=== PATIENT | male | born 1975 | race Caucasian/White ===

== ENCOUNTER 2018-05-01 02:28 | Emergency (ER) | payer OTHER ==
[~2018-05-01] VITALS: Ht 170.2 cm; Wt 90.3 kg
[2018-05-01 02:33] VITALS: Ht 170.2 cm; Wt 90.3 kg
[2018-05-01 04:25] VITALS: BP 131/63
== END 2018-05-01 04:25 | disposition home or self-care (01) ==
LOC: ED 02:28
DX: L03.114 Cellulitis of left upper limb (principal); R03.0 Elevated blood-pressure reading, without diagnosis of hypertension; Z79.890 Hormone replacement therapy
CPT/HCPCS: 90715

== ENCOUNTER 2018-09-06 23:07 | Emergency (ER) | payer OTHER | END 2018-09-07 00:35 | disposition home or self-care (01) | LOC: ED 23:07 ==

== ENCOUNTER 2019-02-06 09:23 | Emergency (ER) | payer OTHER ==
[~2019-02-06] VITALS: Ht 170.2 cm; Wt 88.9 kg
[2019-02-06 09:27] VITALS: Ht 170.2 cm; Wt 88.9 kg
[2019-02-06 11:54] VITALS: BP 132/85
== END 2019-02-06 11:54 | disposition home or self-care (01) ==
LOC: ED 09:23
DX: L03.114 Cellulitis of left upper limb (principal); Z98.890 Other specified postprocedural states

== ENCOUNTER 2019-02-07 07:14 | Emergency (ER) | payer OTHER ==
[~2019-02-07] VITALS: Ht 167.6 cm; Wt 87.5 kg
[2019-02-07 07:21] VITALS: Ht 167.6 cm; Wt 87.5 kg
[2019-02-07 08:08] LABS: BASOPHIL % 0.5 % (0-2); PLATELET COUNT 246 x10^3mcL (130-400); RED CELL DISTRIBUTION WIDTH 12.7 % (11.5-14.5)
[2019-02-07 08:14] LABS: CALCIUM 8.6 mg/dL (8.5-10.1); CARBON DIOXIDE 34.7 mmol/L (21-32); CHLORIDE SERUM 104 mmol/L (98-107); GFR1 > 60 mL/min; GLUCOSE SERUM 114 mg/dL (74-106); POTASSIUM SERUM 3.2 mmol/L (3.5-5.1); SODIUM SERUM 144 mmol/L (136-145)
[2019-02-07 08:24] LABS: ALBUMIN 3.6 g/dL (3.4-5.0); ALKALINE PHOSPHATASE 60 U/L (46-116); ALT/SGPT 23 U/L (16-63); AST/SGOT 11 U/L (15-37); BILIRUBIN TOTAL 0.37 mg/dL (0.20-1.00); C REACTIVE PROTEIN 4.1 mg/dL (<=0.9); TOTAL PROTEIN, SERUM 7.7 g/dL (6.4-8.2)
[2019-02-07 08:28] LABS: T3 TOTAL 1.41 ng/mL
[2019-02-07 08:29] LABS: FREE T4 1.11 ng/dL (0.76-1.46); FREE THYROXINE INDEX 3.4 ug/dL (1.4-4.5); T4(THYROXINE) 9.9 ug/dL (4.7-13.3)
[2019-02-07 08:30] LABS: CK-MB 1.2 ng/mL (0-3.6)
[2019-02-07 09:05] VITALS: BP 145/85
[2019-02-07 09:11] LABS: ERYTHROCYTE SED RATE 30 mm/hr (0-15)
[2019-02-07 11:02] LABS: UA SPECIFIC GRAVITY >=1.030 (1.005-1.035); microscopic required? YES; urine erythrocyte NEGATIVE (NEGATIVE)
== END 2019-02-07 09:05 | disposition home or self-care (01) ==
LOC: ED 07:14
PROVIDERS: Specialist
DX: L03.114 Cellulitis of left upper limb (principal); E87.6 Hypokalemia
CPT/HCPCS: 84439; J2543; J7030; Q0092

== ENCOUNTER 2019-02-08 22:14 | Inpatient (IN) | payer OTHER ==
[~2019-02-08] VITALS: Ht 170.2 cm; Wt 84.9 kg
[2019-02-08 22:28] VITALS: Ht 170.2 cm; Wt 84.9 kg
--- NOTE | 2019-02-08 22:50 | NUR ---
PT. PRESENTS TO ER C/O SP SPIDER BITE 5 DAYS AGO ON HIS LEFT UPPER EXTREMITY, REDNES NOTED, HOT TO TOUCH, PURULENT DRAINAGE NOTED, NO ODOR, PT. STATES HE CAME THIS PAST TUESDAY WAS GIVEN IV ANTIBIOTICS + SCRIPT FOR MEDICATON TO TAKE AT HOME, PT. WAS ASKED TO BE ADMITTED TO THE HOSPITAL ON TUESDAY, PT. STATES HE REFUSED, PT. CURRENTLY LAYING IN BED, AAOX4, NO ACUTE DISTRESS NOTED, 7/10 PAIN, THROBBING, INTERMITTENT, AT BEDSIDE MSE, WILL MONITOR,.
--- NOTE | 2019-02-08 23:06 | NUR ---
LAB AT BEDSIDE
--- NOTE | 2019-02-08 23:06 | NUR ---
X RAY AT BEDSIDE
[2019-02-08 23:12] LABS: BASOPHIL % 0.8 % (0-2); PLATELET COUNT 239 x10^3mcL (130-400); RED CELL DISTRIBUTION WIDTH 12.7 % (11.5-14.5)
[2019-02-08 23:35] LABS: CALCIUM 8.3 mg/dL (8.5-10.1); CARBON DIOXIDE 30.5 mmol/L (21-32); CHLORIDE SERUM 105 mmol/L (98-107); GFR1 > 60 mL/min; GLUCOSE SERUM 98 mg/dL (74-106); POTASSIUM SERUM 3.4 mmol/L (3.5-5.1); SODIUM SERUM 144 mmol/L (136-145)
--- NOTE | 2019-02-08 23:37 | NUR ---
MEDICATED PT. PER ER ORDER, PT. TOELRATED WELL, SEE EMAR
[2019-02-08 23:41] LABS: ALKALINE PHOSPHATASE 55 U/L (46-116); ALT/SGPT 21 U/L (16-63); AST/SGOT 10 U/L (15-37); BILIRUBIN TOTAL 0.39 mg/dL (0.20-1.00); TOTAL PROTEIN, SERUM 6.9 g/dL (6.4-8.2)
[2019-02-08 23:42] LABS: ALBUMIN 3.2 g/dL (3.4-5.0)
[2019-02-09 00:51] LABS: MAGNESIUM 2.1 mg/dL (1.8-2.4)
[2019-02-09 00:56] LABS: CHOLESTEROL/HDL RATIO 3.8
--- NOTE | 2019-02-09 01:17 | NUR ---
REPORT GIVEN TO SANDY
[2019-02-09 02:02] VITALS: BP 113/72
--- NOTE | 2019-02-09 02:11 | NUR ---
RECEIVED FROM ER, AMBULATORY. AWAKE AND ALERT, ORIENTED TO NAME, PLACE, TIME AND SITUATION. BREATHING EVEN AND UNLABORED ON ROOM AIR. LUNG SOUNDS CLEAR. SALINE LOCK TO RIGHT AC. LEFT ELBOW WITH DRESSING, REMOVED NOTED OPEN WOUND 2 X 1.5CM DRAINING MINIMAL YELLOW DRAIN. STATED HAVING 6/10 INTERMITTENT PAIN TO SITE. ORIENTED TO ROOM ENVIRONMENT, INSTRUCTED ON USE OF CALL LIGHT TO CALL FOR ASSISTANCE, PLACED WITHIN EASY REACH. STATED HE WAS HUNGRY, INFORMED DR. CASH, SHE STATED PT MAY HAVE SANDWICH NOW.
--- NOTE | 2019-02-09 02:33 | NUR ---
PROVIDED PT WITH FOOD. WITH ORDER MAY EAT NOW, THEN NPO. EXPLAINED TO PT NO EATING OR DRINKING AFTER THIS SANDWICH. VERBALIZED UNDERSTANDING. REPLACED DRESSING TO LEFT ELBOW WITH NON ADHERING GAUZE AND SECURED.
[2019-02-09 04:26] VITALS: BP 120/72
--- NOTE | 2019-02-09 06:13 | NUR ---
EYES CLOSED, EASILY AWAKENED. BREATHING EVEN AND UNLABORED. DRESSING TO LEFT ELBOW CDI. IVF INFUSING WELL TO RIGHT AC. SITE FREE FROM ERYTHEMA OR SWELLING. CALL LIGHT WITHIN EASY REACH.
[2019-02-09 06:14] LABS: BASOPHIL % 0.7 % (0-2); PLATELET COUNT 233 x10^3mcL (130-400); RED CELL DISTRIBUTION WIDTH 12.6 % (11.5-14.5)
[2019-02-09 06:32] LABS: CALCIUM 8.1 mg/dL (8.5-10.1); CARBON DIOXIDE 31.5 mmol/L (21-32); CHLORIDE SERUM 106 mmol/L (98-107); CREATININE SERUM 0.9 mg/dL (0.7-1.3); GFR1 > 60 mL/min; GLUCOSE SERUM 107 mg/dL (74-106); MAGNESIUM 2.1 mg/dL (1.8-2.4); PHOSPHOROUS 3.2 mg/dL (2.5-4.9); POTASSIUM SERUM 3.2 mmol/L (3.5-5.1); SODIUM SERUM 144 mmol/L (136-145)
--- NOTE | 2019-02-09 07:05 | NUR ---
RECEIVED BEDSIDE REPORT FROM [employer] NURSE AT THIS TIME. PATIENT RESTING COMFORTABLY IN BED. SIGNIFICANT OTHER AT BEDSIDE. NO APPARENT DISTRESS OR DISCOMFORT NOTED. BREATHING EVEN AND UNLABORED. NO RESPIRATORY DISTRESS OR DISCOMFORT NOTED. PATIENT DENIES CHEST PAIN/PRESSURE AT THIS TIME. DRESSING TO LUE IN PLACE, CDI. IV PATENT AND INTACT. ALL QUESTIONS AND CONCERNS ADDRESSED. ALL NEEDS ATTENDED TO. WILL CONTINUE TO MONITOR
--- NOTE | 2019-02-09 07:16 | NUR ---
eyes closed, easily awakened. in no acute distress. stated was able to sleep. endorsed to nurse langston.
[2019-02-09 08:18] LABS: AMPHETAMINE QUAL UR POSITIVE (See below)
[2019-02-09 09:12] VITALS: BP 131/80
[2019-02-09 09:29] LABS: microscopic required? YES; urine erythrocyte NEGATIVE (NEGATIVE)
--- NOTE | 2019-02-09 10:00 | NUR ---
ALL MORNING MEDICATIONS ADMINISTERED. PATIENT TOLERATED MEDICATION WELL. NO APPARENT ADVERSE EFFECTS. ALL NEEDS ATTENDED TO. WILL CONTINUE TO MONITOR
--- NOTE | 2019-02-09 12:00 | NUR ---
DR BURNS AT BEDSIDE TO ASSESS ABSCESS ON LEFT ELBOW. CLEANSED WITH NORMAL SALINE AND CHANGED DRESSING WITH NONADHERENT DRESSING AND WRAPPED WITH COBAN WRAP. PATIENT TOLERATED WELL. NO APPARENT DISTRESS OR DISCOMFORT NOTED. ALL NEEDS ATTENDED TO. WILL CONTIUE TO MONITOR
[2019-02-09 17:00] VITALS: BP 106/64
--- NOTE | 2019-02-09 17:45 | NUR ---
PAGED DR LEMUS REGARDING PATIENT POTASSIUM OF 3.2. AWAITING CALL BACK AT THIS TIME. WILL PROCEED ORDERED
--- NOTE | 2019-02-09 18:42 | NUR ---
PATIENT RESTING COMFORTABLY IN BED AT THIS TIME. NO APPARENT DISTRESS OR DISCOMFORT NOTED. SIGNIFICANT OTHER AT BEDSIDE. IV PATENT AND INTACT. ALL QUESTIONS AND CONCERNS ADDRESSED. ALL NEEDS ATTENDED TO. SAFETY PRECAUTIONS MAINTAINED. WILL ENDORSE ALL CARE TO [employer] SALES REPRESENTATIVE NURSE
--- NOTE | 2019-02-09 18:51 | NUR ---
SPOKE TO DR LEMUS AT THIS TIME. PER DR LEMUS, HE WILL PUT ORDERS FOR POTASSIUM AT THIS TIME. WILL ENDORSE TO IRB COMPLIANCE COORDINATOR NURSE
--- NOTE | 2019-02-09 19:10 | NUR ---
REC'D PT FROM DAY NURSE. PT RESTING IN BED. AAOX4, SPEECH CLEAR, FOLLOWS COMMANDS. MED SURG, NO TELE. DENIES RESP DISTRESS OR SOB. BREATHING EVEN/UNLABORED ON RA. PITTING EDEMA LUE WITH DRESSING TO L ELBOW. PURULENT DRAINAGE NOTED. WILL CHANGE. PT DENIES ANY ROM CHANGES TO L ARM. REPORTS MILD PAIN BUT TOLERABLE. ABD SOFT/ROUND. DENIES ABD PAIN, TENDERNESS, OR N/V. VOIDING FREELY. AMBULATORY. IV TO RAC PATENT AND INFUSING, SITE WNL. CALL LIGHT WITHIN REACH, BED AT LOWEST POSITION. WILL CONTINUE TO MONITOR.
[2019-02-09 20:38] VITALS: BP 97/55
--- NOTE | 2019-02-09 21:15 | NUR ---
WOUND CARE PROVIDED. NONADHERANT DRESSING AND COBAND REMOVED FROM L ELBOW. NOTED DRY PURULENT DRAINAGE. ABSCESS TO L ELBOW NOTED WITH YELLOW WOUND BED. CLEANSED WITH NS, PATTED DRY, APPLIED 4X4 GAUZE X2, NONADHERANT DRESSING ON TOP, WRAPPED WITH KERLIX CODEY, AND SECURED WITH TAPE. PT TOLERATED WELL AND REPORTS ONLY TOLERABLE, MINIMAL PAIN.
--- NOTE | 2019-02-10 01:06 | NUR ---
PT RESTING IN BED WITH EYES CLOSED. LAYING ON R SIDE. NO SIGNS OF DISTRESS NOTED. BREATHING EVEN/UNLABORED ON RA. CALL LIGHT WITHIN REACH, BED AT LOWEST POSITION. WILL CONTINUE TO MONITOR.
[2019-02-10 04:30] VITALS: BP 118/68
[2019-02-10 04:38] VITALS: BP 156/83
--- NOTE | 2019-02-10 05:56 | NUR ---
PT RESTING IN BED WITH EYES CLOSED. SLEEPING. BREATHING EVEN/UNLABORED ON RA. NO S/SX OF PAIN NOTED. DRESSING TO L ELBOW WITH MINIMAL DRAINAGE. NO SIGNIFICANT CHANGES DURING SHIFT. CALL LIGHT WITHIN REACH, BED AT LOWEST POSITION. WILL ENDORSE TO DAY NURSE.
[2019-02-10 07:04] LABS: CALCIUM 8.4 mg/dL (8.5-10.1); CARBON DIOXIDE 28.1 mmol/L (21-32); CHLORIDE SERUM 106 mmol/L (98-107); CREATININE SERUM 0.8 mg/dL (0.7-1.3); GFR1 > 60 mL/min; GLUCOSE SERUM 98 mg/dL (74-106); MAGNESIUM 2.2 mg/dL (1.8-2.4); PHOSPHOROUS 4.5 mg/dL (2.5-4.9); POTASSIUM SERUM 4.2 mmol/L (3.5-5.1); SODIUM SERUM 144 mmol/L (136-145)
--- NOTE | 2019-02-10 07:33 | NUR ---
ASSUMED CARE OF PATIENT. SEEN SLEEPING THIS MORNING WITH EQUAL AND UNLABORED RESPIRATIONS. NO APPARENT DISTRESS OR DISCOMFORT NOTED. DRESSING TO LEFT ELBOW CDI. IV TO RAC PATENT AND INFUSING NS AT 100ML/HR. WILL CONTINUE TO MONITOR.
--- NOTE | 2019-02-10 08:22 | NUR ---
COMPLAINING OF 9/10 HEADACHE. PRN TYLENOL PROVIDED. DRESSING TO LEFT ELBOW CHANGED BY SHA MAGALLON. WOUND WEEPING WITH PUS.
[2019-02-10 08:53] VITALS: BP 158/74
[2019-02-10 09:45] LABS: BASOPHIL % 0.6 % (0-2); PLATELET COUNT 269 x10^3mcL (130-400); RED CELL DISTRIBUTION WIDTH 12.7 % (11.5-14.5)
--- NOTE | 2019-02-10 15:00 | NUR ---
PATIENT NOTIFIED OF NPO STATUS.
[2019-02-10 17:10] VITALS: BP 122/73
--- NOTE | 2019-02-10 19:00 | NUR ---
PATIENT IN BED WITH NO COMPLAINTS OF PAIN OR DISCOMFORT. AWAITING ORDERS FOR DEBRIDMENT PER . IV PATENT AND INFUSING NS AT 100ML/HR. WILL ENDORSE CARE TO ONCOMING RN.
--- NOTE | 2019-02-10 19:40 | NUR ---
REC'D PT FROM DAY NURSE. GIRLFRIEND AT BEDSIDE. PT RESTING IN BED. AAOX4, SPEECH CLEAR, FOLLOWS COMMANDS. MED SURG, NO TELE. DENIES CP, DIZZINESS, OR PALPITATIONS. DENIES RESP DISTRESS OR SOB. BREATHING EVEN/UNLABORED ON RA. C/O LEYVA 12/06. WILL GIVE NORCO PER ORDER. TRACE PITTING EDEMA LUE. ELBOW ABSCESS EXPOSED WITH YELLOW WOUND BED. DR. WILSON RECENTLY IN WITH PLAN FOR DEBRIDEMENT. REPORTS L ELBOW PAIN 10/06, TOLERABLE. AMBULATORY. VOIDING FREELY. IV TO RAC PATENT AND INFUSING. CALL LIGHT WITHIN REACH, BED AT LOWEST POSITION. WILL CONTINUE TO MONITOR.
[2019-02-10 20:43] VITALS: BP 116/72
--- NOTE | 2019-02-10 21:07 | NUR ---
PLAN FOR DEBRIDEMENT OF LEFT ELBOW. CONSENT OBTAINED. CHECKLIST COMPLETED. PT CLEANED WITH CHG WIPES AND GOWN CHANGED. NORCO GIVEN FOR 7/10 LEYVA AND 5/10 L ELBOW PAIN. WILL CONTINUE TO MONITOR.
--- NOTE | 2019-02-10 21:11 | NUR ---
REPORT GIVEN TO OR NURSE
--- NOTE | 2019-02-10 22:30 | NUR ---
PT TAKEN DOWN TO OR FOR DEBRIDEMENT.
[2019-02-11 00:15] VITALS: BP 109/63
--- NOTE | 2019-02-11 00:24 | NUR ---
PT BACK FROM SURGICAL L ELBOW DEBRIDEMENT. VSS. DRESSING WITH MOD SANGUINEOUS DRAINAGE. C/O BURNING, PRESSURE 8/10 PAIN. PT NOT YET DUE FOR NORCO. ALSO REQUESTING FOOD. DR. MCGRATH MADE AWARE. OKAY TO GIVE NORCO EARLY AND RESUME REGULAR DIET. GIRLFRIEND AT BEDSIDE. CALL LIGHT WITHIN REACH, BED AT LOWEST POSITION. WILL CONTINUE TO MONITOR.
--- NOTE | 2019-02-11 03:09 | NUR ---
PT RESTING IN BED WITH EYES CLOSED. L ARM ELEVATED WITH PILLOWS. BREATHING EVEN/UNLABORED ON RA. CALL LIGHT WITHIN REACH, BED AT LOWEST POSITION. WILL CONTINUE TO MONITOR.
--- NOTE | 2019-02-11 05:45 | NUR ---
PT AWAKE AND RESTING IN BED. GIRLFRIEND AT BEDSIDE. REPORTS 6/10 LEYVA, TYLENOL GIVEN. MILD PAIN TO L ELBOW, TOLERABLE. DRESSING WITH MORE SANGUINEOUS DRAINAGE THIS MORNING BUT NOT SATURATED. PT HAS VOIDED S/P PROCEDURE. NO BM BUT BOWEL SOUNDS ACTIVE. NO OTHER COMPLAINTS AT THIS TIME. CALL LIGHT WITHIN REACH, BED AT LOWEST POSITION. WILL ENDORSE TO DAY NURSE.
[2019-02-11 06:19] VITALS: BP 106/59
[2019-02-11 06:38] LABS: BASOPHIL % 0.8 % (0-2); PLATELET COUNT 240 x10^3mcL (130-400); RED CELL DISTRIBUTION WIDTH 12.6 % (11.5-14.5)
[2019-02-11 06:45] LABS: CALCIUM 7.6 mg/dL (8.5-10.1); CARBON DIOXIDE 27.7 mmol/L (21-32); CHLORIDE SERUM 107 mmol/L (98-107); GFR1 > 60 mL/min; GLUCOSE SERUM 145 mg/dL (74-106); MAGNESIUM 2.1 mg/dL (1.8-2.4); POTASSIUM SERUM 3.6 mmol/L (3.5-5.1); SODIUM SERUM 141 mmol/L (136-145)
--- NOTE | 2019-02-11 07:00 | NUR ---
RECIEVED PT ASLEEP IN BED WITH NO S/S OF PAIN OR DISTRESS. FAMILY AT BEDSIDE. NS RUNNING AT 100ML/HR IN RFA, INTACT AND PATENT WITH NO REDNESS OR INFLAMMATION NOTED. SAFETY PRECAUTIONS IN PLACE, CALL LIGHT WITHIN REACH, WILL ASSESS AND MONITOR.
[2019-02-11 08:49] VITALS: BP 107/57
--- NOTE | 2019-02-11 10:30 | NUR ---
PT STABLE WITH NO C/O PAIN OR DISTRESS AT THIS TIME. SIGNIFICANT OTHER AT BEDSIDE. SAFETY PRECAUTIONS IN PLACE, CALL LIGHT WITHIN REACH, WILL MONITOR.
--- NOTE | 2019-02-11 14:52 | NUR ---
PT RESTING IN BED COMFORTABLY. DENIES ANY PAIN OR DISTRESS. CALL LIGHT WITHIN REACH WILL CONTINUE TO MONITOR.
--- NOTE | 2019-02-11 16:49 | NUR ---
RECIEVED POSITIVEN RESULT FOR MRSA IN WOUND FROM LAB, CHARGE NOTIFIES AND CONTACT PRECAUTIONS IN PLACE AND SHA MAGALLON NOTIFIED.
[2019-02-11 18:01] VITALS: BP 105/57
--- NOTE | 2019-02-11 18:11 | NUR ---
PT STABLE, RESTING IN BED WITH NO C/O PAIN OR DISTRESS. TOLERATED ALL CARES WELL. VS WNL. IV INTACT AND PATENT WITH NO REDNESS OR INFLAMMATION. CONTACT PRECAUTIONS IN PLACE. A/O X4. NS 100ML/HR RUNNING IN RFA.SAFETY PRECAUTIONS IN PLACE, CALL LIGHT WITHIN REACH, WILL ENDORSE TO NIGHT NURSE.
--- NOTE | 2019-02-11 18:58 | NUR ---
DRESSING CHANGED PER MD ORDER, PT TOLERATED WELL.
--- NOTE | 2019-02-11 19:10 | NUR ---
REC'D PT FROM DAY NURSE. PT RESTING IN BED. AAOX4, SPEECH CLEAR, FOLLOWS COMMANDS. MED SURG, NO TELE. DENIES CP, DIZZINESS, OR PALPITATIONS. DENIES RESP DISTRESS OR SOB. BREATHING EVEN/UNLABORED ON RA. TRACE EDEMA LUE. S/P DEBRIDEMENT L ELBOW POD #1. DRESSING CDI. C/O / BURNING/SHARP PAIN. NORCO GIVEN PER ORDER. ABD SOFT/ROUND/NONTENDER. DENIES ABD PAIN, TENDERNESS, OR N/V. VOIDING FREELY. AMBULATORY. IV TO RFA PATENT AND INFUSING, SITE WNL. CONTACT PRECAUTIONS IN PLACE. CALL LIGHT WITHIN REACH, BED AT LOWEST POSITION. WILL CONTINUE TO MONITOR.
[2019-02-11 20:45] VITALS: BP 123/88
--- NOTE | 2019-02-11 23:09 | NUR ---
SPOKE TO DR. MCGRATH TO CLARIFY DRESSING CHANGE ORDERS FOR WEEKLY PICTURE. STATED WILL CONSULT WITH DAY TEAM.
[2019-02-12 04:23] VITALS: BP 98/65
--- NOTE | 2019-02-12 04:40 | NUR ---
PT C/O LUE BURNING 8/10 PAIN TO LUE. NORCO GIVEN PER ORDER. DRESSING CDI. LUE ELEVATED WITH PILLOWS. PT DID NOT HAVE A BM LAST NIGHT. NO BM X5 DAYS. BOWEL SOUNDS ACTIVE. OFFERED TO ASK FOR LAXITIVE BUT PT DENIED.NO SIGNIFICANT CHANGES DURING SHIFT. CALL LIGHT WITHIN REACH, BED AT LOWEST POSITION. DAY NURSE TO CONFIRM DRESSING CHANGE ORDERS AND TAKE WEEKLY PICTURE.
[2019-02-12 06:30] LABS: BASOPHIL % 0.7 % (0-2); PLATELET COUNT 275 x10^3mcL (130-400); RED CELL DISTRIBUTION WIDTH 12.4 % (11.5-14.5)
[2019-02-12 06:46] LABS: CARBON DIOXIDE 28.8 mmol/L (21-32); CHLORIDE SERUM 110 mmol/L (98-107); CREATININE SERUM 0.9 mg/dL (0.7-1.3); GFR1 > 60 mL/min; GLUCOSE SERUM 109 mg/dL (74-106); POTASSIUM SERUM 4.2 mmol/L (3.5-5.1); SODIUM SERUM 145 mmol/L (136-145)
--- NOTE | 2019-02-12 07:05 | NUR ---
RECEIVED PT FROM SILVIA RN. NO S/S OF ACUTE DISTRESS. RESTING IN BED WITH BOTH EYES CLOSED. NO SOB ON ROOM AIR. RR EVEN/UNLABORED. NO S/S OF CHEST PAIN. IVS WNL TO RH/RFA, IV FLUIDS FLUIDS FLOWING. SITES WNL. FLUSH WELL. CONTACT PRECAUTIONS IN PLACE FOR MRSA TO WOUND. WOUND TO LEFT ELBOW COVERED BY DRESSING, CDI. BED IN LOW POSITION. CALL LIGHT WITHIN REACH. WILL CONTINUE TO MONITOR.
--- NOTE | 2019-02-12 07:05 | NUR ---
RECEIVED PT FROM SILVIA RN. NO S/S OF ACUTE DISTRESS. RESTING IN BED WITH BOTH EYES CLOSED. NO SOB ON ROOM AIR. RR EVEN/UNLABORED. NO S/S OF PAIN. NO S/S OF CHEST PAIN. IV WNL TO RFA, 22 GAUGE, IV FLUIDS FLUIDS FLOWING. SITE WNL. FLUSH WELL. CONTACT PRECAUTIONS IN PLACE FOR MRSA TO WOUND. WOUND TO LEFT ELBOW COVERED BY DRESSING, CDI. BED IN LOW POSITION. CALL LIGHT WITHIN REACH. WILL CONTINUE TO MONITOR.
[2019-02-12 07:31] VITALS: BP 102/61
--- NOTE | 2019-02-12 08:39 | NUR ---
PT COMPLAINT OF PAIN TO LEFT ELBOW AT WOUND SITE, RATES PAIN 8/10, CONTINUOUS, WORSE WITH MOVEMENT, RELIEVED BY REST/MEDICATION. GIVEN PO PAIN MED. SEE MAR. PT AA/OX4. NO S/S OF ACUTE DISTRESS. NO SOB ON ROOM AIR. VS STABLE. NO CHEST PAIN. IV WNL TO RFA, PATENT AND FLUSHES WELL. IV ANTIBIOTICS RUNNING. BED IN LOW POSITION. CALL LIGHT WITHIN REACH. CONTACT PRECAUTIONS IN PLACE. INSTRUCTED TO USE CALL LIGHT TO CALL FOR ASSISTANCE PRN. VERBALIZED UNDERSTANDING.
--- NOTE | 2019-02-12 09:57 | NUR ---
PT LAYING IN BED. AA/OX4. NO S/S OF ACUTE DISTRESS. COMPLAINT OF CONTINUOUS PAIN TO LEFT ELBOW, GIVEN PO PAIN MED, SEE MAR. REPORTS PAIN DECREASING, OFFERED ALTERNATE PO PAIN MED, DECLINED AT THIS TIME. PT RESTING IN BED WITH LEFT ELBOW ELEVATED WITH PILLOW. NO SOB ON ROOM AIR. NO CHEST PAIN. CALM/COOPERATIVE. CONTACT PRECAUTIONS IN PLACE. BED IN LOW POSITION. CALL LIGHT WITHIN REACH. WILL CONTINUE TO MONITOR.
--- NOTE | 2019-02-12 12:28 | NUR ---
PT COMPLAINT OF PAIN TO LEFT ELBOW, CONTINUOUS, ACHING, WORSE WITH MOVEMENT/PALPATION. RATES 7/10. GIVEN PAIN MED, SEE MAR. NO S/S OF ACUTE DISTRESS. NO SOB ON ROOM AIR. NO C/O NUMBNESS. NO CHEST PAIN. DRESSING TO LEFT ELBOW CDI. BED IN LOW POSITION. CALL LIGHT WITHIN REACH. VISITOR AT BEDSIDE, CONTACT PRECAUTIONS IN PLACE, VISITOR EDUCATED ON CONTACT PRECAUTIONS. VERBALIZED UNDERSTANDING. BED IN LOW POSITION. CALL LIGHT WITHIN REACH. PT SITTING UP EATING LUNCH. WILL CONTINUE TO MONITOR.
--- NOTE | 2019-02-12 16:29 | NUR ---
WOUND CARE EVALUATION: S/P DEBRIDEMENT TO LEFT ELBOW WOUND BED IS 100% RED GRANULATING TISSUE, CLEAN MOIST WITH 2X1.5X0.5CM WITH UNDERMINING BETWEEN 6 TO 8 O'CLOCK WITH 0.5 CM DEEP, NO TUNNELING,NO ODOR, PAIN 2/10 BEARABLE. WOUND EDGE WELL DEFINED,OLMAN WOUND SKIN INTACT, SLIGHTLY SWELLING. WOUND CARE TEACHING TO ROGER WITH PT.'S PERMISSION,AND POC DISCUSSED. PT. VERBALIZES UNDERSTANDING. RECOMMENDATIONS: -CLEANSE WOUND WITH NS, PAT DRY, PACK WOUND WITH THERAHONEY DRESSING AND COVER WITH DRY DRESSING SECURE WITH TAPE,CHANGE DRESSING EVERY OTHER DAY AND PRN IF SOILING. -KEEP LEFT ELBOW AREA DRY AND CLEAN AT ALL TIMES -CONTINUE IV ANTIBIOTIC RECOMMENDED ALL ABOVE RECOMMENDATIONS DISCUSSED WITH PRIMARY RN
[2019-02-12 17:15] VITALS: BP 115/70
--- NOTE | 2019-02-12 18:11 | NUR ---
PT LAYING IN BED. NO COMPLAINT OF PAIN. NO S/S OF ACUTE DISTRESS. NO SOB ON ROOM AIR. DRESSING TO LEFT ELBOW CLEAN/DRY. SEE CHART FOR WOUND PICTURE. IV WNL TO RFA, IV FLUIDS FLOWING. NO SOB ON ROOM AIR. NO CHEST PAIN. CALM/COOPERATIVE. NO FEVER/CHILLS. BED IN LOW POSITION. CALL LIGHT WITHIN REACH. WILL ENDORSE TO ONCOMING SHIFT. VISITOR AT BEDSIDE. CONTACT PRECAUTIONS IN PLACE.
[2019-02-12 20:09] VITALS: BP 110/61
--- NOTE | 2019-02-12 20:17 | NUR ---
RECEIVED PT IN BED, RESTING QUIETLY. A/O X4. DENIES HEADACHE/DIZZINESS. RESP. EVEN AND UNLABORED. ON ROOM AIR, NO ACUTE DISTRESS NOTED. DENIES CP OR ANY DISCOMFORT AT THIS TIME. DRESSING TO LT ELBOW , DRY AND INTACT. IVF , NS AT 100ML/HR, INTACT AND INFUSING VIA RFA. SITE CLEAR. AMBULATORY. VOIDING FREELY. CALL LIGHT WITHIN REACH. WILL CONTINUE TO MONITOR.
--- NOTE | 2019-02-13 01:07 | NUR ---
NO COMPLAINTS NOTED AT THIS TIME. EYES CLOSED, APPEARS ASLEEP, EASILY AROUSABLE. RESP. EVEN AND UNLABORED. NO ACUTE DISTRESS NOTED. CALL LIGHT WITHIN REACH. WILL CONTINUE TO MONITOR.
[2019-02-13 05:21] VITALS: BP 125/70
--- NOTE | 2019-02-13 06:05 | NUR ---
SLEPT WELL. NO COMPLAINTS NOTED. RESP. EVEN AND UNLABORED. NO ACUTE DISTRESS NOTED. AFEBRILE AND VITAL SIGNS STABLE. DUE MEDS GIVEN ORDERED, ANA. WELL. IVF INTACT AND INFUSING WELL, SITE CLEAR. VOIDING FREELY.LT ELBOW DRESSING DRY AND INTACT. KEPT COMFORTABLE. CONTACT ISOLATION PREC. MAINTAINED. WILL CONTINUE TO MONITOR.
--- NOTE | 2019-02-13 07:05 | NUR ---
PT FOUND RESTING IN BED WITH BOTH EYES CLOSED. NO S/S OF ACUTE DISTRESS. NO SOB ON ROOM AIR. NO CHEST PAIN. DRESSING TO LEFT ELBOW CDI. IV WNL TO RFA, IV FLUIDS FLOWING. PT CALM/COOPERATIVE. NO COMPLAINT OF PAIN AT THIS TIME. NO N/V. CONTACT PRECAUTIONS IN PLACE. BED IN LOW POSITION. CALL LIGHT WITHIN REACH. WILL CONTINUE TO MONITOR.
[2019-02-13 07:38] LABS: C REACTIVE PROTEIN 0.3 mg/dL (<=0.9); CALCIUM 7.8 mg/dL (8.5-10.1); CARBON DIOXIDE 26.7 mmol/L (21-32); CHLORIDE SERUM 107 mmol/L (98-107); CREATININE SERUM 0.8 mg/dL (0.7-1.3); GFR1 > 60 mL/min; GLUCOSE SERUM 98 mg/dL (74-106); POTASSIUM SERUM 4.1 mmol/L (3.5-5.1); SODIUM SERUM 142 mmol/L (136-145)
[2019-02-13 07:50] VITALS: BP 127/69
[2019-02-13] MEDS ORDERED: CLEOCIN HCL150 MG PO (10:53)
[2019-02-13 10:55] VITALS: BP 127/69
--- NOTE | 2019-02-13 11:11 | NUR ---
PT LAYING IN BED. NO COMPLAINT OF PAIN. NO S/S OF ACUTE DISTRESS. NO COMPLAINT OF PAIN. NO SOB ON ROOM AIR. CALM/COOPERATIVE. DRESSING TO LEFT ELBOW CDI. BED IN LOW POSITION. CALL LIGHT WITHIN REACH. WILL CONTINUE TO MONITOR.
--- NOTE | 2019-02-13 13:00 | NUR ---
PT BEING DISCHARGED TO HOME. AWAKE, ALERT, ORIENTED X4. NO S/S OF ACUTE DISTRESS. NO COMPLAINT OF PAIN. NO SOB ON ROOM AIR. NO CHEST PAIN. DRESSING TO LEFT ELBOW CDI. SEE CHART FOR PICTURES. IV REMOVED FROM RFA, CATHETER IN TACT. PRESSURE APPLIED, SITE WNL. NO N/V. NO CHILLS. PT EDUCATED ON CONTACT PRECAUTIONS. DISCHARGE EDUCATION PROVIDED TO PT. INSTRUCTED TO FOLLOW UP WITH PCP AT [facility]. VERBALIZED UNDERSTANDING. WOUND CARE EDUCATION PROVIDED TO PT WITH SUPPLIES FOR LEFT ELBOW. PRESCRIPTION PROVIDED TO PATIENT. PT WAITING FOR RIDE HOME. WILL CONTINUE TO MONITOR.
--- NOTE | 2019-02-13 15:11 | NUR ---
PT DISCHARGED TO HOME. ESCORTED TO DISCHARGE LOBBY BY [facility]. ACCOMPANIED BY SIGNIFICANT OTHER JESE. PT AWAKE, ALERT, ORIENTED X4. NO S/S OF ACUTE DISTRESS. NO SOB ON ROOM AIR. BELONGINGS AND PRESCRIPTION WITH PATIENT. NO CHILLS. NO FEVER. NO N/V. NO CHEST PAIN. CALM/COOPERATIVE. AMBULATORY WITH FULL ROM. GAIT STEADY.
== END 2019-02-13 15:11 | disposition home or self-care (01) | DRG 383 ==
LOC: ED 22:14 → MU 02-09 00:10
PROVIDERS: Emergency Medicine; Surgery; ADMIT Internal Medicine
PROC: 0JBH0ZZ Excision of Left Lower Arm Subcutaneous Tissue and Fascia, Open Approach (ICD-10-PCS; principal; 2019-02-10 07:00)
DX: L03.114 Cellulitis of left upper limb (principal); E87.6 Hypokalemia; T63.301A Toxic effect of unspecified spider venom, accidental (unintentional), initial encounter; F12.10 Cannabis abuse, uncomplicated; L02.414 Cutaneous abscess of left upper limb; F15.10 Other stimulant abuse, uncomplicated; Z68.30 Body mass index [BMI] 30.0-30.9, adult; Y92.89 Other specified places as the place of occurrence of the external cause; Z72.89 Other problems related to lifestyle; Z71.51 Drug abuse counseling and surveillance of drug abuser
CPT/HCPCS: 83880; G0378; J2001; J2543; J2704; J3370; J3490; J7030; J7050; J7120; Q0092